=== PATIENT | female | born 1975 | race African-American/Black ===

== ENCOUNTER 2021-02-22 20:22 | Emergency (ER) | payer OTHER ==
[~2021-02-22] VITALS: Ht 172.7 cm; Wt 83.9 kg
[~2021-02-22 20:22] MED LIST: FLAGYL500 MG PO; FLEXERIL PO; IBUPROFEN 600600 M1 PO; IBUPROFEN 800800 M1 PO; MACROBID 100 M100 M1 PO; NOHOMEMEDICATIONS; NORCO 5-325 TA1 EACH PO
[2021-02-22] MEDS ORDERED: PROAIR HFA8.5 GM INH (20:48)
[2021-02-22 21:15] VITALS: BP 111/75
== END 2021-02-22 21:17 | disposition home or self-care (01) ==
LOC: ER 20:22
DX: U07.1 COVID-19 (principal); Z79.1 Long term (current) use of non-steroidal anti-inflammatories (NSAID); Z79.891 Long term (current) use of opiate analgesic; Z79.899 Other long term (current) drug therapy